=== PATIENT | female | born 2005 | race Caucasian/White ===

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

== ENCOUNTER 2024-03-22 14:23 | Emergency (ER) | payer BC, SELFPAY ==
[2024-03-22 15:40] VITALS: BP 114/70; PULSE 83; RESP 18; TEMP 36.8; O2SAT 99; BMI 24.7
[2024-03-22 15:56] LABS: UTC Influenza A Antigen Negative (Negative)
[2024-03-22 15:57] LABS: UTC Influenza B Antigen Negative (Negative)
--- NOTE | 2024-03-22 15:57 | ED_ITS ---
Discharge Plan Disposition Patient Disposition: Home, Self-Care Condition: Good Referrals Follow up/Referrals: Alex Ulloa MD [Primary Care Provider] - See instructions Activity Restrictions/Add. Instructions Additional Instructions/Restrictions: *Monitor Temp, Over the counter Motrin or Tylenol as directed/as needed Tylenol every 4 hours and Motrin every 6 hours (as long as your family doctor has told you that you can take it) for fever or pain. and straight to ER if unable to lower temp less than 101.0 after medication given *Sleep elevated *Humidifier/Vaporizer Follow up IMMEDIATELY for new or worsening symptoms or no Noticeable improvement over the next 48-72 hours. 911 for difficulty breathing or swallowing Clinical Impressions Clinical Impression: Flu-like symptoms Stand Alone Forms Stand Alone Forms: Work/School Release Instructions Patient Instructions: DI for Nasal Congestion Print Language Print Language: Romanian Discharge ED Provider: Rebecca Barba [facility] [place] HPI General Stated complaint: fever, nasal congestion, B/A, H/A Mode of Arrival: Ambulatory Source of Information: Patient Limitations: No Limitations Time Seen by Provider: 03/22/24 15:57 Description of Symptoms (Recalled from Triage Doc. by RN): FLU SYMPTOMS HEENT Symptoms (Recalled from RN notes): No Resp Symptoms (Recalled from RN notes): Yes Skin Symptoms (Recalled from RN notes): No MS Symptoms (Recalled from RN notes): No Functional Status (Recalled from RN notes): NA History of Present Illness Provider Complaint: Patient states that she has been exposed to the flu and she started last night having body aches and chills and this morning felt like she may have a fever so she came in to get tested Related Data Allergies Allergy/AdvReac Type Severity Reaction Status Date / Time No Known Allergies Allergy Verified 12/26/22 11:45 Worker's Comp Is this a Worker's Comp case?: No [facility] Disclaimer: The information contained in this section may have been updated after the patient was seen, as this information can be updated by other users. Medical History (Updated 03/22/24 @ 16:06 by Rebecca Barba APRN) No significant past medical history Social History (Updated 12/26/22 @ 12:23 by Rebecca Barba APRN) Smoking Status: Unknown if ever smoked alcohol intake: never current occupational status: student Travel in the last 8 weeks: None Have you lived/traveled outside [place] in past 30 days?: No Contact w/someone who lives/traveled outside [place] past 30 days?: No Exposure to someone with infectious disease in past 14 days?: No Do you have a fever (greater than 100.4 F or 38 C)?: Yes Have you tested positive for COVID-19: No Exposed to someone with COVID-19 in past 14 days?: No Do you have a sore throat?: No Do you have a cough?: No Do you have any weakness?: No Do you have any diarrhea?: No Are you experiencing any unusual bleeding?: No Do you have any muscle aches/pain?: Yes Do you have any abdominal pain?: No Are you experiencing loss of taste or smell?: No ROS Obtained: Yes All systems reviewed & no additional complaints except as documented and Yes Systems reviewed as appropriate & no additional complaints except as documented Constitutional Constitutional: Reports system reviewed and no additional complaints, except as documented, Reports as per HPI, Reports body ache, Reports chills, Reports fever(s) and Reports headache(s) ENT Ears, Nose, Mouth, and Throat: Reports system reviewed and no additional complaints, except as documented, Reports as per HPI, Reports headache(s), Reports nasal congestion and Reports nasal discharge Cardiovascular Cardiovascular: Reports system reviewed and no additional complaints, except as documented and Reports as per HPI Respiratory Respiratory: Reports system reviewed and no additional complaints, except as documented and Reports as per HPI Gastrointestinal Gastrointestingal: Reports system reviewed and no additional complaints, except as documented and as per HPI Neurologic Neurologic: Reports headache(s) Physical Exam General General appearance: alert and in no apparent distress ENT ENT exam: Present normal exam, normal oropharynx, mucous membranes moist and TM's normal bilaterally Respiratory Respiratory exam: Present normal lung sounds bilaterally; Absent respiratory distress or wheezes Cardiovascular Cardiovascular exam: Present regular rate, normal rhythm and normal heart sounds Abdominal Exam Abdominal exam: Present soft and normal bowel sounds; Absent distention or t enderness Neurological Exam Neurological exam: Present alert, oriented X3 and normal gait Medical Decision Making Medical Records Screening: Per USPSTF and CDC recommendations, given the prevalence of disease in our region, it is our hospital?s policy to screen for HIV and viral Hepatitis for all patients aged 18 and over and those with ongoing risk factors. Blake Inquiry Pt receiving controlled substance: No Blake was queried for this patient: No Vital Signs: 03/22/24 15:40 Temperature 98.3 F Temperature Source Oral Pulse Rate [Left Radial] 83 Respiratory Rate 18 Blood Pressure [Right Arm] 114/70 Blood Pressure Mean [Right Arm] 84 02 Sat by Pulse Oximetry 99 Lab Data Lab results reviewed: Yes I reviewed the patient's lab results. Lab Results 03/22/24 15:29: Influenza Type A Ag Negative, Influenza Type B Ag Negative
[2024-03-22 16:13] VITALS: BP 114/70; PULSE 83; RESP 18; TEMP 36.8; O2SAT 99
== END 2024-03-22 16:20 | disposition home or self-care (01) ==
PROVIDERS: Emergency Provider Nurse Practitioner; PCP Family Medicine
DX: R68.89 Other general symptoms and signs (principal)
CPT/HCPCS: 87804; 99213; G0381

== ENCOUNTER 2024-04-06 16:04 | Outpatient (CLI) | payer BC, SELFPAY ==
--- NOTE | 2024-04-06 16:08 | XR_ITS ---
FINAL REPORT CLINICAL HISTORY: INJURY OF THUMB FINDINGS: AP, oblique, and lateral views of the left hand were obtained. There is no prior exam for comparison. There are 2 small calcifications adjacent to the ulnar side sesamoid at the first metacarpophalangeal joint. An avulsion fracture of the metacarpal or base of the proximal phalanx is not excluded. Remaining osseous structures are without acute abnormality. Remaining joint spaces are preserved. The soft tissues are normal. IMPRESSION: Calcifications adjacent to the ulnar side sesamoid at the first metacarpophalangeal joint. An avulsion fracture of the metacarpal or base of the proximal phalanx is not excluded. Consider MRI for further evaluation. Reviewed, Interpreted and Dictated by Oxana Vera MD Transcribed by Luz Valentino Authenticated and [facility]
== END 2024-04-06 23:59 | disposition home or self-care (01) ==
LOC: RAD 16:05
PROVIDERS: PCP Family Medicine; Visit Provider Family Medicine
DX: M79.642 Pain in left hand (principal); S69.92XA Unspecified injury of left wrist, hand and finger(s), initial encounter
CPT/HCPCS: 73130